=== PATIENT | female | born 1945 | race Caucasian/White ===

== ENCOUNTER → 2018-05-02 08:29 | Outpatient (CLI) | payer MEDICARE, OTHER, SELFPAY ==
--- NOTE | 2018-05-02 | DI.MG.S_ITS ---
BILATERAL DIGITAL SCREENING MAMMOGRAM 3D/2D WITH CAD: 05/02/2018 CLINICAL: Routine screening. Comparison is made to exams dated: 04/23/2017 ultrasound, 04/23/2017 mammogram, 04/09/2017 mammogram, 01/29/2016 mammogram, and 06/17/2014 mammogram - [facility]. There are scattered fibroglandular elements in both breasts. Current study was also evaluated with a Computer Aided Detection (CAD) system. No significant masses, calcifications, or other findings are seen in either breast. There has been no significant interval change. IMPRESSION: NEGATIVE There is no mammographic evidence of malignancy. A 1 year screening mammogram is recommended. This exam was interpreted at Station ID: [id number]. NOTE: For mammograms, a report in lay terms will be sent to the patient. Approximately 15% of breast malignancies will not be visualized mammographically. In the management of a palpable breast mass, a negative mammogram must not discourage biopsy of a clinically suspicious lesion. Electronically Signed By: Jane adhikari/jordan:05/04/2018 12:11:33 copy to: Tejas Granados letter sent: Normal Exam ACR BI-RADS Category 1: Negative 3341F
== END ==
PROVIDERS: Family Provider Family Medicine; PCP Family Medicine; Visit Provider Specialist
DX: Z12.31 Encounter for screening mammogram for malignant neoplasm of breast (principal)
CPT/HCPCS: 77063; 77067

== ENCOUNTER → 2019-06-01 12:05 | Outpatient (CLI) | payer MEDICARE, OTHER, SELFPAY ==
--- NOTE | 2019-06-01 | DI.MG.S_ITS ---
BILATERAL DIGITAL SCREENING MAMMOGRAM 3D/2D WITH CAD: 06/01/2019 CLINICAL: Routine screening. Comparison is made to exams dated: 05/02/2018 mammogram, 04/09/2017 mammogram, 01/29/2016 mammogram, 10/22/2017 mammogram, 04/23/2017 mammogram, and 06/17/2014 mammogram - [facility]. There are scattered fibroglandular elements in both breasts. Current study was also evaluated with a Computer Aided Detection (CAD) system. No significant masses, calcifications, or other findings are seen in either breast. There has been no significant interval change. IMPRESSION: NEGATIVE There is no mammographic evidence of malignancy. A 1 year screening mammogram is recommended. This exam was interpreted at Station ID: [id number]. NOTE: For mammograms, a report in lay terms will be sent to the patient. Approximately 15% of breast malignancies will not be visualized mammographically. In the management of a palpable breast mass, a negative mammogram must not discourage biopsy of a clinically suspicious lesion. Electronically Signed By: Kam marrufo/jordan:06/01/2019 13:31:16 copy to: BAILEY MARIE letter sent: Normal Exam ACR BI-RADS Category 1: Negative 3341F
== END ==
PROVIDERS: Family Provider Specialist; PCP Family Medicine; Visit Provider Family Medicine
DX: Z12.31 Encounter for screening mammogram for malignant neoplasm of breast (principal)
CPT/HCPCS: 77063; 77067

== ENCOUNTER → 2020-06-07 15:41 | Outpatient (CLI) | payer MEDICARE, OTHER, SELFPAY ==
--- NOTE | 2020-06-07 | DI.MG.S_ITS ---
BILATERAL DIGITAL SCREENING MAMMOGRAM 3D/2D WITH CAD: 06/07/2020 CLINICAL: Routine screening. Comparison is made to exams dated: 06/01/2019 mammogram, 05/02/2018 mammogram, and 10/22/2017 mammogram - [facility]. There are scattered fibroglandular elements in both breasts. Current study was also evaluated with a Computer Aided Detection (CAD) system. No significant masses, calcifications, or other findings are seen in either breast. There has been no significant interval change. IMPRESSION: NEGATIVE There is no mammographic evidence of malignancy. A 1 year screening mammogram is recommended. This exam was interpreted at Station ID: [id number]. NOTE: For mammograms, a report in lay terms will be sent to the patient. Approximately 15% of breast malignancies will not be visualized mammographically. In the management of a palpable breast mass, a negative mammogram must not discourage biopsy of a clinically suspicious lesion. Electronically Signed By: Jane adhikari/jordan:06/13/2020 15:17:41 letter sent: Normal Exam ACR BI-RADS Category 1: Negative 3341F
== END ==
PROVIDERS: Family Provider Specialist; PCP Family Medicine; Referring Provider Family Medicine; Visit Provider Family Medicine
DX: Z12.31 Encounter for screening mammogram for malignant neoplasm of breast (principal)
CPT/HCPCS: 77063; 77067

== ENCOUNTER → 2021-05-09 17:49 | Outpatient (CLI) | payer MEDICARE, OTHER, SELFPAY ==
[2021-05-09 18:33] LABS: COVID19 -Nasal RAPID POSITIVE (Negative)
== END ==
PROVIDERS: Family Provider Specialist; PCP Family Medicine; Visit Provider Nurse Practitioner Family
DX: U07.1 COVID-19 (principal); Z20.822 Contact with and (suspected) exposure to COVID-19
CPT/HCPCS: 87635

== ENCOUNTER 2021-05-13 19:15 | Emergency (ER) | payer MEDICARE, OTHER, SELFPAY ==
[2021-05-13] VITALS (10 sets, daily range): BP systolic 132–144; BP diastolic 58–74; PULSE 86–90; RESP 18; TEMP 37.2; O2SAT 92–95
--- NOTE | 2021-05-13 20:42 | ED_ITS ---
HPI - Recheck/Abnormal Lab/Rx General Chief Complaint: Recheck/Abnormal Lab/Rx Stated Complaint: covid +, dehydrated Time Seen by Provider: 05/13/21 20:11 Source: patient Mode of arrival: Ambulatory History of Present Illness HPI narrative: 75-year-old woman with a history of rheumatoid arthritis for which she is on intermittent steroids and hydroxychloroquine, hypertension and diagnosis of COVID-19 on the . She started having upper respiratory symptoms 3 days prior to that, putting her currently at about day 7 or 8 of symptoms. She is complaining of dehydration, with loss of taste and smell it has been difficult for her to drink she started diarrhea yesterday. Slightly dizzy when she stands up. Mild cough, fevers, myalgias. She is not complaining of severe dyspnea at this time and oxygen saturations are 94% and with deep breathing and walking go up to 97-98%. She does describe mild headache, she does complain of some mild nausea but no overt vomiting. Increasing global weakness/fatigue has been an issue. Related Data Home Medications Medication Instructions Recorded Confirmed OMEPRAZOLE 20 mg PO QDAY PRN #0 08/03/12 05/09/21 cholecalciferol (vitamin D3) 50 6,000 iu PO QDAY #0 08/03/12 05/09/21 mcg (2,000 unit) capsule (Vitamin D3) atenolol 25 mg tablet 25 mg PO QDAY #0 08/17/12 05/09/21 hydroxychloroquine 200 mg tablet 400 mg PO BID #0 tab 07/13/18 05/09/21 (Plaquenil) Previous Rx's Medication Instructions Recorded albuterol sulfate 90 mcg/actuation 0 INH Q4H #8 gm 08/26/16 aerosol inhaler (Ventolin HFA) albuterol sulfate 90 mcg/actuation 0 puff INH Q4HP PRN #1 ea 07/20/17 aerosol inhaler (Ventolin HFA) prednisone 50 mg tablet 50 mg PO AMCC #5 tab 07/20/17 benzonatate 100 mg capsule 100 mg PO BID PRN #14 cap 05/13/21 (Tessalon Perles) ondansetron 4 mg disintegrating 4 mg PO Q8H PRN #12 tab 05/13/21 tablet Allergies Allergy/AdvReac Type Severity Reaction Status Date / Time azithromycin [AZITHROMYCIN] Allergy Unknown Verified 05/09/21 18:17 SULFA Allergy Severe TONGUE Uncoded 05/09/21 18:17 SWELLING Review of Systems Review of Systems Narrative: Remainder of complete review of systems is otherwise unremarkable except for that included in the HPI. Patient History Medical History Abnormal Pap smear of cervix (~2010) Acne (~1960) Chicken pox (~1954) Colon polyps (~2008) Fibroids (~1982) Human papilloma virus (~2010) Measles (~1957) MRSA (methicillin resistant Staphylococcus aureus) (~2011) MVP (mitral valve prolapse) (~1975) Osteoporosis (~2007) Rheumatoid arthritis (~2010) Seasonal allergies (~1954) Surgical History Anesthesia History of breast surgery (~1977) History of hip replacement History of knee replacement (06/05/16) Status post bunionectomy (~2006) Status post delivery (~1982) Family History Father Heart disease Mother Diabetes mellitus Social History Smoking Status: Former smoker Smoking Status: Former smoker Exam Narrative Exam Narrative: General: Healthy appearing, in no acute distress. Able to give a complete and coherent history. Well-nourished well-developed HEENT: Moist mucous membranes, normal sclera with reactive pupils, Neck: No JVD, supple Respiratory: Lungs with minor rhonchi left upper posterior lobe with scattered wheeze in that area. This does not clear with coughing. Full and symmetrical air movement Cardiac: Regular rate and rhythm no murmurs no bruits Abdomen: Soft, nontender, good bowel tones, no flank pain Skin: Warm and dry, no rashes Neurologic: Grossly neurologically intact with no obvious asymmetries or abnormalities Extremities: No trauma, well perfused Psych: Cooperative, appropriate insight and affect Initial Vital Signs Initial Vital Signs: Vital Signs Temperature 99.0 F 05/13/21 19:21 Pulse Rate 90 05/13/21 19:21 Respiratory Rate 18 05/13/21 19:21 Blood Pressure 144/65 H 05/13/21 19:21 Pulse Oximetry 95 05/13/21 19:21 Course Orders Ordered: ED Orders 05/13/21 22:09 XR chest 1V Stat 05/13/21 22:30 Complete Blood Count AUTO DIFF Stat Comprehensive Metabolic Panel Stat Discontinued Medications Benzonatate (Benzonatate 100 Mg Capsule) 100 mg PO NOW ONE Stop: 05/13/21 20:54 Last Admin: 05/13/21 21:09 Dose: 100 mg Documented by: WESTON Sodium Chloride (Normal Saline 0.9%) 1,000 mls @ 1,000 mls/hr IV BOLUS ONE Stop: 05/13/21 21:52 Last Admin: 05/13/21 21:08 Dose: 1,000 mls/hr Documented by: WESTON Ondansetron HCl (Ondansetron 4 Mg/2 Ml Inj) 4 mg IV NOW ONE Stop: 05/13/21 20:54 Last Admin: 05/13/21 21:09 Dose: 4 mg Documented by: WESTON Vital Signs Vital signs: Vital Signs - 8 hr 05/13/21 19:21 05/13/21 20:02 05/13/21 20:30 Temperature 99.0 F Pulse Rate 90 87 87 Respiratory Rate 18 Blood Pressure 144/65 H Pulse Oximetry 95 94 94 05/13/21 21:00 05/13/21 21:17 05/13/21 21:30 Temperature Pulse Rate 89 88 86 Respiratory Rate Blood Pressure 132/58 L Pulse Oximetry 93 93 93 05/13/21 22:00 05/13/21 22:30 Temperature Pulse Rate 86 87 Respiratory Rate Blood Pressure Pulse Oximetry 94 95 MDM - Recheck/Abnormal Lab/Rx Medical Records Medical records narrative: 75-year-old woman with COVID pneumonia oxygenation levels are in the 94-98% range. She was dehydrated with the diarrhea has been rehydrated feeling slightly better. I suspect with her respiratory status that she may well end up back in the emergency room within the next 24-48 hours with oxygen requirements. Have reviewed with her reasons to return and at this point she is safe for home discharge. I have given her Zofran to help with nausea as well as Tessalon to help with the cough, explain these are purely symptomatic measures. Lab Data Result diagrams: 05/13/21 22:30 05/13/21 22:30 Labs: Lab Results 05/13/21 05/13/21 Range/Units 22:30 22:30 WBC 4.2 L (4.5-11.0) X10^3/uL RBC 5.21 H (4.0-5.2) X10^6/uL Hgb 15.1 (12.0-16.0) g/dL Hct 45.2 (36-46) % MCV 86.7 (80-100) fL MCH 28.9 (26-34) PG MCHC 33.3 (30-36) % RDW 13.4 (11.6-14.8) % Plt Count 96 L (150-400) X10^3/uL Neut % (Auto) 71.8 (50-75) % Lymph % (Auto) 13.9 L (25-40) % [place] % (Auto) 13.8 (3-14) % Eos % (Auto) 0.0 L (2-4) % Baso % (Auto) 0.5 (0-2) % Neut # (Auto) 3000 (5556-0869) /uL Lymph # (Auto) 600 L (0965-3540) /uL [place] # (Auto) 600 (0-900) /uL Eos # (Auto) 0 (0-450) /uL Baso # (Auto) 0 (0-100) /uL Sodium 130 L (137-145) mmol/L Potassium 4.8 (3.4-5.1) mmol/L Chloride 102 (98-107) mmol/L Carbon Dioxide 21 L (22-32) mmol/L BUN 18 H (7-17) mg/dL Creatinine 0.68 (0.52-1.04) mg/dL Estimated GFR > 60.0 (>60) mL/min BUN/Creatinine Ratio 26.5 H (6-22) Glucose 91 (80-110) mg/dL Calcium 8.3 L (8.4-10.2) mg/dL Total Bilirubin 0.5 (0.2-1.3) mg/dL AST 39 H (14-36) IU/L ALT 23 (<35) IU/L Alkaline Phosphatase 55 (38-126) U/L Total Protein 6.2 L (6.3-8.2) g/dL Albumin 3.4 L (3.5-5.0) g/dL Globulin 2.8 (1.7-4.1) g/dL Albumin/Globulin Ratio 1.2 (1.0-2.8) Imaging Data Chest x-ray: Radiologist's Impression: FINDINGS:? ? Surgical changes and devices:? None.? ? Lungs and pleura:? Lungs are clear.? Subtle patchy airspace opacities are consistent with history of COVID-19.? No pleural effusions or pneumothorax.? ? Mediastinum:? Mediastinal contours appear normal.? Heart size is normal.? ? Bones and chest wall:? No suspicious bony lesions.? Overlying soft tissues appear unremarkable.? ? IMPRESSION:? Patchy mild airspace opacities consistent with history of COVID-19. ? ? Dictated by: Zeus Snyder M.D. on 05/13/2021 at 22:35 ? ? [facility] Narrative Medical decision making narrative: 75-year-old woman on day 7 of her COVID-19 infection, on vaccinated. Chest x-ray is consistent with COVID-19 without superimposed bacterial pneumonia. Lab work is consistent with similar findings. At this time she is not needing any oxygen simply feeling a bit dehydrated from the diarrhea. Will discharge her home with nausea medication as well as Tessalon Perles to help control the cough. Will strongly encourage her to ret urn should she have increasing dyspnea. Discharge Plan Departure Patient Disposition: Home Clinical Impression: COVID-19 Instructions: DI for COVID-19 (Suspected or Confirmed ) Activity Restrictions/Additional Instructions: Thank you for coming in today Your oxygen levels are reassuring at this time in you do not need hospital admission You do have COVID pneumonia. I have given you a prescription for Zofran to help with nausea that you might have and some Tessalon Perles to try to help with the cough. If you find that you are becoming increasingly short of breath, you need to return to the hospital. [facility] [place] I hope you heal quickly Prescriptions: New ondansetron 4 mg tablet,disintegrating 4 mg PO Q8H PRN (Reason: nausea and vomiting) Qty: 12 RF: 0 benzonatate [Tessalon Perles] 100 mg capsule 100 mg PO BID PRN (Reason: cough) Qty: 14 RF: 0 No Action cholecalciferol (vitamin D3) [Vitamin D3] 2,000 UNIT capsule 6,000 iu PO QDAY Qty: 0 RF: 0 OMEPRAZOLE 20 mg PO QDAY PRN Qty: 0 RF: 0 atenolol 25 MG tablet 25 mg PO QDAY Qty: 0 RF: 0 albuterol sulfate [Ventolin HFA] 90 MCG/PUFF HFA aerosol inhaler 0 INH Q4H Qty: 8 RF: 0 prednisone 50 MG tablet 50 mg PO AMCC Qty: 5 RF: 0 albuterol sulfate [Ventolin HFA] 90 MCG/PUFF HFA aerosol inhaler 0 puff INH Q4HP PRNQty: 1 RF: 0 hydroxychloroquine [Plaquenil] 200 mg tablet 400 mg PO BID Qty: 0 RF: 0 Referrals: Tejas Granados MD [Primary Care Provider] -
[2021-05-13] MEDS: SODIUM CHLORIDE 0.9% 1,000 ML 1000 ML IV (21:08)
[2021-05-13] MEDS: BENZONATATE 100 MG CAPSULE PO (21:09)
[2021-05-13] MEDS: ONDANSETRON 4 MG/2 ML INJ IV (21:09)
--- NOTE | 2021-05-13 22:09 | DI.RAD.S_ITS ---
PROCEDURE: XR CHEST 1V INDICATIONS: covid TECHNIQUE: One view of the chest was acquired. COMPARISON: [facility], , CHEST 2 VIEW, 07/20/2017, 1:40. FINDINGS: Surgical changes and devices: None. Lungs and pleura: Lungs are clear. Subtle patchy airspace opacities are consistent with history of COVID-19. No pleural effusions or pneumothorax. Mediastinum: Mediastinal contours appear normal. Heart size is normal. Bones and chest wall: No suspicious bony lesions. Overlying soft tissues appear unremarkable. IMPRESSION: Patchy mild airspace opacities consistent with history of COVID-19. Dictated by: Zeus Snyder M.D. on 05/13/2021 at 22:35 Approved by: Zeus Snyder M.D. on 05/13/2021 at 22:36
[2021-05-13 22:48] LABS: Add Manual Diff / Slide Review NO; Basophils Absolute Auto 0 /uL (0-100); Basophils Percent Auto 0.5 % (0-2); Eosinophils Absolute Auto 0 /uL (0-450); Hematocrit 45.2 % (36-46); Hemoglobin 15.1 g/dL (12.0-16.0); Lymphocytes Absolute Auto 600 /uL (1100-4500); Lymphocytes Percent Auto 13.9 % (25-40); Mean Corpuscular HGB Conc 33.3 % (30-36); Mean Corpuscular Hemoglobin 28.9 PG (26-34); Mean Corpuscular Volume 86.7 fL (80-100); Monocytes Absolute Auto 600 /uL (0-900); Monocytes Percent Auto 13.8 % (3-14); Neutrophils Absolute Auto 3000 /uL (1500-7000); Neutrophils Percent Auto 71.8 % (50-75); Platelet Count 96 X10^3/uL (150-400); Red Blood Cell Count 5.21 X10^6/uL (4.0-5.2); Red Cell Distribution Width 13.4 % (11.6-14.8); White Blood Cell Count 4.2 X10^3/uL (4.5-11.0)
[2021-05-13 22:59] LABS: Alanine Aminotransferase 23 IU/L (<35); Albumin 3.4 g/dL (3.5-5.0); Albumin Globulin Ratio 1.2 (1.0-2.8); Alkaline Phosphatase 55 U/L (38-126); Aspartate Aminotransferase 39 IU/L (14-36); BUN Creatinine Ratio 26.5 (6-22); Bilirubin Total 0.5 mg/dL (0.2-1.3); Blood Urea Nitrogen 18 mg/dL (7-17); Calcium 8.3 mg/dL (8.4-10.2); Carbon Dioxide 21 mmol/L (22-32); Chloride 102 mmol/L (98-107); Estimated Glomerular Filt Rate > 60.0 mL/min (>60); Globulin 2.8 g/dL (1.7-4.1); Glucose 91 mg/dL (80-110); HEMOLYSIS < 15 (0-50); Potassium 4.8 mmol/L (3.4-5.1); Sodium 130 mmol/L (137-145); Total Protein 6.2 g/dL (6.3-8.2)
== END 2021-05-13 23:37 | disposition home or self-care (01) ==
PROVIDERS: Emergency Provider Emergency Medicine; Family Provider Specialist; PCP Family Medicine
DX: U07.1 COVID-19 (principal); R51.9 Headache, unspecified; R11.0 Nausea; R06.00 Dyspnea, unspecified
CPT/HCPCS: 36415; 71045; 80053; 85025; 96361; 96374; 99284; J2405

== ENCOUNTER → 2021-08-18 12:41 | Outpatient (CLI) | payer MEDICARE, OTHER, SELFPAY ==
--- NOTE | 2021-08-18 | DI.MG.S_ITS ---
BILATERAL DIGITAL SCREENING MAMMOGRAM 3D/2D WITH CAD: 08/18/2021 CLINICAL: Routine screening. Comparison is made to exams dated: 06/07/2020 mammogram, 06/01/2019 mammogram, and 05/02/2018 mammogram - [facility]. There are scattered fibroglandular elements in both breasts. Current study was also evaluated with a Computer Aided Detection (CAD) system. No significant masses, calcifications, or other findings are seen in either breast. There has been no significant interval change. IMPRESSION: NEGATIVE There is no mammographic evidence of malignancy. A 1 year screening mammogram is recommended. This exam was interpreted at Station ID: [id number]. NOTE: For mammograms, a report in lay terms will be sent to the patient. Approximately 15% of breast malignancies will not be visualized mammographically. In the management of a palpable breast mass, a negative mammogram must not discourage biopsy of a clinically suspicious lesion. Electronically Signed By: Merle espino/jordan:08/20/2021 10:09:07 letter sent: Normal Exam ACR BI-RADS Category 1: Negative 3341F
== END ==
PROVIDERS: Family Provider Specialist; PCP Family Medicine; Referring Provider Family Medicine; Visit Provider Family Medicine
DX: Z12.31 Encounter for screening mammogram for malignant neoplasm of breast (principal)
CPT/HCPCS: 77063; 77067

== ENCOUNTER → 2022-03-20 18:19 | Outpatient (CLI) | payer MEDICARE, OTHER, SELFPAY ==
--- NOTE | 2022-03-20 18:23 | DI.RAD.S_ITS ---
PROCEDURE: XR HIP W PEL IF DONE RT 2V INDICATIONS: right hip pain TECHNIQUE: AP pelvis with lateral view(s) of the right hip(s). COMPARISON: [facility], , HIP 2V RIGHT, 05/25/2012, 13:28. FINDINGS: Bones: No fractures or dislocations. Pelvic ring appears intact. Bilateral hip arthroplasties appear intact. No suspicious bony lesions. Soft tissues: The visualized bowel gas pattern is normal. No suspicious soft tissue calcifications. IMPRESSION: No radiographic abnormalities. Dictated by: Jane Duenas M.D. on 03/21/2022 at 11:48 Approved by: Jane Duenas M.D. on 03/21/2022 at 11:49
== END ==
PROVIDERS: Family Provider Specialist; PCP Family Medicine; Referring Provider Chiropractor; Visit Provider Chiropractor
DX: M25.551 Pain in right hip (principal)
CPT/HCPCS: 73502

== ENCOUNTER → 2022-04-13 14:28 | Outpatient (CLI) | payer MEDICARE, OTHER, SELFPAY ==
--- NOTE | 2022-04-13 14:31 | DI.CT.S_ITS ---
PROCEDURE: CT HIP RIGHT WITHOUT CON INDICATIONS: Pain in right hip;Preoperative planning TECHNIQUE: Noncontrast 3 mm axial sections acquired through the bony pelvis. Additional 3 mm axial sections acquired through the symptomatic hip joint, with coronal and sagittal reformats. COMPARISON: [facility], CR, XR HIP W PEL IF DONE RT 2V, 03/20/2022, 18:28. FINDINGS: Image quality: Diagnostic. Significant beam hardening artifacts are seen from hip prosthesis. Bones: Patient is status post bilateral total hip arthroplasty. Bilateral hip alignment is anatomic. No gross acute fracture or dislocation. No periprosthetic fracture is seen. No gross hardware loosening or failure is noted. No suspicious intraosseous lesion is seen. 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 Soft tissues: There is no pelvic free fluid or free air. Sigmoid diverticulosis is seen without evidence of acute diverticulitis. No abnormal bowel wall thickening or bladder wall thickening. No abnormal soft tissue calcifications are seen. No gross intramuscular mass or fluid collection. IMPRESSION: 1. Prior bilateral total hip arthroplasty with anatomic hip alignment. No acute fracture or dislocation. No evidence of hardware loosening or failure. 2. No gross pelvic or hip soft tissue abnormality is seen. Dictated by: Richard Lora M.D. on 04/15/2022 at 11:54 Approved by: Richard Lora M.D. on 04/15/2022 at 12:07
== END ==
PROVIDERS: Family Provider Specialist; PCP Family Medicine; Referring Provider Student in an Organized Health Care Education/Training Program; Visit Provider Student in an Organized Health Care Education/Training Program
DX: M25.551 Pain in right hip (principal); Z96.643 Presence of artificial hip joint, bilateral
CPT/HCPCS: 73700

== ENCOUNTER → 2022-06-02 13:59 | Outpatient (CLI) | payer MEDICARE, OTHER, SELFPAY ==
--- NOTE | 2022-06-02 14:02 | DI.MRI.S_ITS ---
PROCEDURE: MR LUMBAR SPINE WO CON INDICATIONS: Radiculopathy, lumbar region TECHNIQUE: Noncontrast sagittal T1 spin echo and T2 fast echo, sagittal STIR, and T2 fast spin echo through the lumbar spine. In cases with scoliosis, additional coronal T2 fast spin echo may be performed. COMPARISON: None. FINDINGS: Image quality: Excellent. Alignment and Curvature: There is normal bony alignment. Bone Marrow: Marrow is of normal overall signal. No acute vertebral body compression fractures. Spinal Cord: Conus medullaris terminates at the L1 level. Visualized cord demonstrates normal signal and size. Paraspinous Soft Tissues: No paravertebral masses. T12-L1: Moderate disc desiccation and height loss. Broad-based disc bulge. Moderate facet ligamentum flavum hypertrophy. No canal stenosis. Mild bilateral neural foraminal stenosis. L1-L2: Moderate disc desiccation and height loss. Broad-based disc bulge. Moderate facet ligamentum flavum hypertrophy. No canal stenosis. Mild left foraminal narrowing. No right neural foraminal stenosis. L2-L3: Mild disc desiccation and height loss. Broad-based disc bulge. Severe facet ligamentum flavum hypertrophy. Mild canal stenosis. Mild bilateral foraminal stenosis. L3-L4: Mild disc desiccation and height loss. Broad-based disc bulge. Severe facet ligamentum flavum hypertrophy. Mild canal stenosis. Moderate bilateral neural foraminal stenosis. L4-L5: Moderate disc desiccation and height loss. Broad-based disc bulge. Severe facet ligamentum flavum hypertrophy. There is there is a bilobed cystic posterior right extra medullary lesion that likely originates from the facet joint which measures approximately 1.5 x 1.2 x1.6 cm in the axial plane and spans both sides of the facet joint (series 7/image 11). There is severe resultant canal stenosis. There is moderate left neural foraminal narrowing and severe right neural foraminal stenosis with flattening of the exiting nerve root. L5-S1: Moderate disc desiccation and height loss. Broad-based disc bulge. Severe facet ligamentum flavum hypertrophy. No canal stenosis. Mild right and moderate left foraminal stenosis. IMPRESSION: 1. Bilobed cystic lesion at L4-5 which likely represents a synovial cyst. However, contrast enhanced MRI of the lumbar spine is recommended to exclude other extramedullary lesions. There is resultant severe canal stenosis and severe right foraminal stenosis with flattening of the exiting nerve root at this level. 2. Multilevel mild to moderate disc desiccation and height loss. 3. Broad-based disc bulges and facet ligamentum flavum hypertrophy with resultant mild canal stenosis at L2-3 and L3-4. 4. Moderate bilateral foraminal stenosis at L3-4 and moderate left foraminal stenosis at L5-S1. Dictated by: Jane Duenas M.D. on 06/03/2022 at 8:57 Approved by: Jane Duenas M.D. on 06/03/2022 at 9:04
== END ==
PROVIDERS: Family Provider Specialist; PCP Family Medicine; Referring Provider Physical Medicine & Rehabilitation Pain Medicine; Visit Provider Physical Medicine & Rehabilitation Pain Medicine
DX: M51.16 Intervertebral disc disorders with radiculopathy, lumbar region (principal); M48.8X6 Other specified spondylopathies, lumbar region; M48.061 Spinal stenosis, lumbar region without neurogenic claudication; M48.07 Spinal stenosis, lumbosacral region
CPT/HCPCS: 72148

== ENCOUNTER → 2022-06-09 14:08 | Outpatient (CLI) | payer MEDICARE, OTHER, SELFPAY ==
--- NOTE | 2022-06-09 14:10 | DI.MRI.S_ITS ---
PROCEDURE: MR LUMBAR SPINE W CON INDICATIONS: SPINAL STENOSIS TECHNIQUE: Noncontrast sagittal T1 spin echo and T2 fast echo, sagittal STIR, and T2 fast spin echo through the lumbar spine. In cases with scoliosis, additional coronal T2 fast spin echo may be performed. COMPARISON: [facility], MR, MR LUMBAR SPINE WO CON, 06/02/2022, 14:15. FINDINGS: Image quality: Excellent. Alignment and Curvature: There is normal bony alignment. This study was performed to evaluate a cystic lesion posteriorly at the level of L4-L5, which was felt to most likely represent a large synovial cyst on the interpretation of this study of 06/02/2022. At that time, an MRI of the lumbar spine with contrast was recommended to exclude other extra medullary lesions. This lesion does not enhance, and is a synovial cyst off of the facet joint, likely off of the right facet joint. It does result in severe canal stenosis and right foraminal stenosis. IMPRESSION: The large cystic lesion at L4-L5, resulting in severe canal stenosis and right foraminal stenosis represents a facet joint cyst, likely off of the right L4-L5 facet joint. Dictated by: Shay Kiran M.D. on 06/10/2022 at 9:09 Approved by: Shay Kiran M.D. on 06/10/2022 at 9:14
== END ==
PROVIDERS: Family Provider Specialist; PCP Family Medicine; Referring Provider Physical Medicine & Rehabilitation Pain Medicine; Visit Provider Physical Medicine & Rehabilitation Pain Medicine
DX: M48.062 Spinal stenosis, lumbar region with neurogenic claudication (principal); M53.86 Other specified dorsopathies, lumbar region
CPT/HCPCS: 72149

== ENCOUNTER 2022-06-26 08:07 | Emergency (ER) | payer MEDICARE, OTHER, SELFPAY ==
[2022-06-26 08:14] VITALS: BP 117/65; PULSE 77; RESP 18; TEMP 36.8; O2SAT 98; BMI 34.5
--- NOTE | 2022-06-26 08:21 | DI.RAD.S_ITS ---
PROCEDURE: XR CHEST 2V INDICATIONS: cough/congestion TECHNIQUE: 2 views of the chest were acquired. COMPARISON: [facility], CR, XR CHEST 1V, 05/13/2021, 22:21. FINDINGS: Surgical changes and devices: None. Lungs and pleura: Mild diffuse interstitial prominence with streaky bibasilar opacities. No focal consolidations. Mild perihilar airway thickening. No pneumothorax or substantial pleural effusion seen. Mediastinum: Mediastinal contours are normal. Heart size is normal. Bones and chest wall: No suspicious bony abnormalities. Soft tissues appear unremarkable. IMPRESSION: Diffuse interstitial prominence with mild perihilar airway thickening. Findings may represent an infectious or inflammatory process with viral etiology most likely. No focal consolidations identified. Streaky bibasilar opacities favored to represent atelectasis. Recommend follow up chest radiograph 4-6 weeks after treatment to document resolution of findings and/or return to baseline examination. Dictated by: Marin Pace M.D. on 06/26/2022 at 8:35 Approved by: Marin Pace M.D. on 06/26/2022 at 8:37
--- NOTE | 2022-06-26 08:52 | ED.URI ---
HPI - URI/Sore Throat General Chief Complaint: Upper Respiratory Symptoms Stated Complaint: flu symptoms t-5 coughing/worry its moving to lung Time Seen by Provider: 06/26/22 08:19 Source: patient Mode of arrival: Ambulatory History of Present Illness HPI Narrative: 76-year-old female former smoker with history of rheumatoid arthritis presents with a chief complaint of 4-5 days with various upper respiratory symptoms including nasal congestion some mild headache, prior fever and body aches but now increasingly productive cough. She denies nausea, vomiting or diarrhea. She denies dysuria, frequency or urgency. She states she is been around other sick people in his rather convinced she has the flu Related Data Home Medications Medication Instructions Recorded Confirmed OMEPRAZOLE 20 mg PO QDAY PRN ##0 08/03/12 05/09/21 cholecalciferol (vitamin D3) 50 6,000 iu PO QDAY ##0 08/03/12 05/09/21 mcg (2,000 unit) capsule (Vitamin D3) atenolol 25 mg tablet 25 mg PO QDAY ##0 08/17/12 05/09/21 hydroxychloroquine 200 mg tablet 400 mg PO BID #0 tabs 07/13/18 05/09/21 (Plaquenil) Previous Rx's Medication Instructions Recorded albuterol sulfate 90 mcg/actuation 0 INH Q4H ##8 08/26/16 aerosol inhaler (Ventolin HFA) albuterol sulfate 90 mcg/actuation 0 puff INH Q4HP PRN #1 ea 07/20/17 aerosol inhaler (Ventolin HFA) prednisone 50 mg tablet 50 mg PO AMCC #5 tabs 07/20/17 benzonatate 100 mg capsule 100 mg PO BID PRN cough #14 caps 05/13/21 (Tessalon Perles) ondansetron 4 mg disintegrating 4 mg PO Q8H PRN nausea and 05/13/21 tablet vomiting #12 tabs doxycycline hyclate 100 mg tablet 100 mg PO BID #20 tabs 06/26/22 ondansetron 4 mg disintegrating 4 mg PO TID-QID PRN nausea and 06/26/22 tablet vomiting #10 tabs Allergies Allergy/AdvReac Type Severity Reaction Status Date / Time azithromycin [AZITHROMYCIN] Allergy Unknown Verified 06/26/22 08:17 SULFA Allergy Severe TONGUE Uncoded 05/09/21 18:17 SWELLING Review of Systems Review of Systems Narrative: GENERAL: See HPI HEENT: See HPI RESPIRATORY: D see HPI CARDIOVASCULAR: Denies chest pain, palpitations, orthopnea, edema, GASTROINTESTINAL: Denies nausea, vomiting, abdominal pain, diarrhea, constipation, melena. : Denies dysuria, frequency, incontinence, hematuria, urinary retention. MUSCULOSKELETAL: denies weakness, joint pain, or bony pain SKIN: Denies rash, skin lesions, or other NEUROLOGIC: Denies weakness, headache, numbness, change in speech, confusion, seizures, incoordination. PSYCHIATRIC: No concerning psychosocial issues. 12 point review of systems is negative except for those stated above Patient History Medical History Abnormal Pap smear of cervix (~2010) Acne (~1960) Chicken pox (~1954) Colon polyps (~2008) Fibroids (~1982) Human papilloma virus (~2010) Measles (~1957) MRSA (methicillin resistant Staphylococcus aureus) (~2011) MVP (mitral valve prolapse) (~1975) Osteoporosis (~2007) Rheumatoid arthritis (~2010) Seasonal allergies (~1954) Surgical History Anesthesia History of breast surgery (~1977) History of hip replacement History of knee replacement (06/05/16) Status post bunionectomy (~2006) Status post delivery (~1982) Family History Father Heart disease Mother Diabetes mellitus Social History Smoking Status: Former smoker Smoking Status: Former smoker alcohol intake frequency: holidays/special occasions only Substance Use Type: does not use Exam Narrative Exam Narrative: GENERAL: [76] year old patient appears stated age. Well-developed patient, in mild distress. HEAD: Atraumatic. Normocephalic. EYES: Pupils equal round and reactive. Extraocular motions intact. No scleral icterus. No injection or drainage. ENT: Nose without bleeding, purulent drainage. Throat without erythema, tonsillar hypertrophy or exudate. Airway patent. NECK: Trachea midline. Non tender CARDIOVASCULAR: Regular rate and rhythm without murmurs, gallops, or rubs. RESPIRATORY: Clear to auscultation. Breath sounds equal bilaterally. No wheezes, rales, or rhonchi. GASTROINTESTINAL: Abdomen soft, non-tender, nondistended. EXTREMITIES: No edema or joint tenderness. BACK: Nontender without deformity or crepitance. No flank tenderness. NEURO: AOx3. SKIN: No rash or erythema of visible areas Initial Vital Signs Initial Vital Signs: Vital Signs Temperature 98.2 F 06/26/22 08:14 Pulse Rate 77 06/26/22 08:14 Respiratory Rate 18 06/26/22 08:14 Blood Pressure 117/65 06/26/22 08:14 Pulse Oximetry 98 06/26/22 08:14 Oxygen Delivery Method 06/26/22 08:14 Course Orders Ordered: ED Orders 06/26/22 08:21 Chest [XR chest 2V] Stat Vital Signs Vital signs: Vital Signs - 8 hr 06/26/22 08:14 Temperature 98.2 F Pulse Rate 77 Respiratory Rate 18 Blood Pressure 117/65 Pulse Oximetry 98 Oxygen Delivery Method Room Air MDM - URI/Sore Throat MDM Narrative Medical decision making narrative: 76-year-old female former smoker with upper respiratory symptoms for few days. Did not want to respiratory panel knowing that it would not likely change the plan. Chest x-ray does have some subtle findings and given her history of former smoking and now increasingly productive cough we will cover her for atypical pneumonia. She is tolerating orals without difficulty. She demonstrates no signs of respiratory distress such as hypoxemia or use of accessory muscles. Return precautions discussed and questions answered to her apparent satisfaction Discharge Plan Departure Patient Disposition: Home Clinical Impression: Upper respiratory infection, Atypical pneumonia Instructions: DI for Atypical Pneumonia Activity Restrictions/Additional Instructions: *You have been diagnosed with [atypical pneumonia] *What to do: *Please continue to take your regular medications as directed. [ x] New medication prescriptions sent to your pharmacy: [ [facility]] [ ] New medication written as a paper prescription [ ] No new medications given *Please follow up with your primary care provider in 2-3 days, call for an appointment. Let them know you were seen in the Emergency Department and that we ask that you be seen in follow up. We will electronically transmit a record of today's note if your PCP is in our system *Return to Emergency Department if you should have any new, worsening or concerning symptoms, such as [fever greater than 101 F, shaking chills, worsening pain, persistent vomiting or other bothersome symptoms] Prescriptions: New ondansetron 4 mg tablet,disintegrating 4 mg PO TID-QID PRN (Reason: nausea and vomiting) Qty: 10 0RF doxycycline hyclate 100 mg tablet 100 mg PO BID Qty: 20 0RF No Action cholecalciferol (vitamin D3) [Vitamin D3] 2,000 UNIT capsule 6,000 iu PO QDAY Qty: 0 OMEPRAZOLE 20 mg PO QDAY PRN Qty: 0 atenolol 25 MG tablet 25 mg PO QDAY Qty: 0 albuterol sulfate [Ventolin HFA] 90 MCG/PUFF HFA aerosol inhaler 0 INH Q4H Qty: 8 0RF prednisone 50 MG tablet 50 mg PO AMCC Qty: 5 0RF albuterol sulfate [Ventolin HFA] 90 MCG/PUFF HFA aerosol inhaler 0 puff INH Q4HP PRNQty: 1 0RF hydroxychloroquine [Plaquenil] 200 mg tablet 400 mg PO BID Qty: 0 Label Comments: PT ONLY TAKES 400MG ONCE A DAY BUT COMPUTER WONT LET ME PUT QD IN ONLY BID ondansetron 4 mg tablet,disintegrating 4 mg PO Q8H PRN (Reason: nausea and vomiting) Qty: 12 0RF benzonatate [Tessalon Perles] 100 mg capsule 100 mg PO BID PRN (Reason: cough) Qty: 14 0RF Referrals: Tejas Granados MD [Primary Care Provider] - Visit Report Forms: Patient Portal/API
== END 2022-06-26 09:14 | disposition home or self-care (01) ==
PROVIDERS: Emergency Provider Emergency Medicine; Family Provider Specialist; PCP Family Medicine
DX: J18.9 Pneumonia, unspecified organism (principal); J06.9 Acute upper respiratory infection, unspecified
CPT/HCPCS: 71046; 99281; 99283

== ENCOUNTER 2022-06-30 15:13 | Emergency (ER) | payer MEDICARE, OTHER, SELFPAY ==
[2022-06-30 15:34] VITALS: BP 142/65; PULSE 76; RESP 18; TEMP 36.4; O2SAT 94; BMI 34.5
--- NOTE | 2022-06-30 15:39 | ED_ITS ---
HPI - SOB/Dyspnea General Chief Complaint: Recheck/Abnormal Lab/Rx Stated Complaint: Meds making her sick, Reevaluation Time Seen by Provider: 06/30/22 15:23 Source: patient Mode of arrival: Family Vehicle Limitations: no limitations History of Present Illness HPI Narrative: Patient is a 76-year-old female who presents with reaction to medication. She is a history of rheumatoid arthritis she was seen and evaluated here on 06/26/2022 for upper respiratory like symptoms. Now for about 8 days she started having body aches fever and cough. Though subsided however she had persistent cough which is what brought her for evaluation. She is found to have atypical pneumonia on her chest x-ray she was discharged home on doxycycline and Zofran. She says that she feels constantly nauseous she is not vomiting she does not feel like she tolerating the doxycycline. She continues to have cough but body aches have been resolved. She is eating and drinking normally. She denies any chest pain or palpitations. No dizziness or lightheadedness. She overall just does not feel like doxycycline is the right choice and she has not taken a full course yet. Related Data Home Medications Medication Instructions Recorded Confirmed OMEPRAZOLE 20 mg PO QDAY PRN ##0 08/03/12 05/09/21 cholecalciferol (vitamin D3) 50 6,000 iu PO QDAY ##0 08/03/12 05/09/21 mcg (2,000 unit) capsule (Vitamin D3) atenolol 25 mg tablet 25 mg PO QDAY ##0 08/17/12 05/09/21 hydroxychloroquine 200 mg tablet 400 mg PO BID #0 tabs 07/13/18 05/09/21 (Plaquenil) Previous Rx's Medication Instructions Recorded albuterol sulfate 90 mcg/actuation 0 INH Q4H ##8 08/26/16 aerosol inhaler (Ventolin HFA) albuterol sulfate 90 mcg/actuation 0 puff INH Q4HP PRN #1 ea 07/20/17 aerosol inhaler (Ventolin HFA) prednisone 50 mg tablet 50 mg PO AMCC #5 tabs 07/20/17 benzonatate 100 mg capsule 100 mg PO BID PRN cough #14 caps 05/13/21 (Tesrei Rose) ondansetron 4 mg disintegrating 4 mg PO Q8H PRN nausea and 05/13/21 tablet vomiting #12 tabs doxycycline hyclate 100 mg tablet 100 mg PO BID #20 tabs 06/26/22 ondansetron 4 mg disintegrating 4 mg PO TID-QID PRN nausea and 06/26/22 tablet vomiting #10 tabs Allergies Allergy/AdvReac Type Severity Reaction Status Date / Time azithromycin [AZITHROMYCIN] AdvReac Mild Vomiting Verified 06/30/22 15:37 SULFA Allergy Severe TONGUE Uncoded 06/30/22 15:37 SWELLING Review of Systems Review of Systems Narrative: GENERAL: Denies chills, fatigue, malaise, fever, sweats, travel HEENT: Denies sinus pain, ear pain, sore throat, difficulty swallowing, neck pain RESPIRATORY: See HPI CARDIOVASCULAR: Denies chest pain, palpitations, orthopnea, edema GASTROINTESTINAL: See HPI : Denies dysuria, frequency, incontinence, hematuria, urinary retention, flank pain. MUSCULOSKELETAL: Denies weakness, joint pain, or bony pain SKIN: No rash, no erythema, no pruritus NEUROLOGIC: Denies weakness, dizziness, headache, numbness, change in speech, confusion PSYCHIATRIC: No concerning psychosocial issues. 12 point review of systems is negative except for those stated above and HPI Patient History Medical History Abnormal Pap smear of cervix (~2010) Acne (~1960) Chicken pox (~1954) Colon polyps (~2008) Fibroids (~1982) Human papilloma virus (~2010) Measles (~1957) MRSA (methicillin resistant Staphylococcus aureus) (~2011) MVP (mitral valve prolapse) (~1975) Osteoporosis (~2007) Rheumatoid arthritis (~2010) Seasonal allergies (~1954) Surgical History Anesthesia History of breast surgery (~1977) History of hip replacement History of knee replacement (06/05/16) Status post bunionectomy (~2006) Status post delivery (~1982) Family History Father Heart disease Mother Diabetes mellitus Social History Smoking Status: Former smoker Smoking Status: Former smoker alcohol intake frequency: holidays/special occasions only Substance Use Type: does not use Exam Initial Vital Signs Initial Vital Signs: Vital Signs Temperature 97.6 F 06/30/22 15:34 Pulse Rate 76 06/30/22 15:34 Respiratory Rate 18 06/30/22 15:34 Blood Pressure 142/65 H 06/30/22 15:34 Pulse Oximetry 94 06/30/22 15:34 Oxygen Delivery Method 06/30/22 15:34 GENERAL: Patient is 76 years old overall appears well and in [no acute] distress. HEENT: Head atraumatic,EOMI, pupils reactive, face symmetric, [moist] mucous membranes CARDIOVASCULAR: Regular rate and rhythm without murmurs, rubs or gallops. RESPIRATORY: Breath sounds equal bilaterally, no wheezes rales or rhonchi. ABDOMEN: Soft, nontender. Normoactive bowel sounds all 4 quadrants. No guarding or rebound. EXTREMITIES: Normal range of motion, no clubbing or edema. Neurovascularly intact NEUROLOGICAL: Alert and oriented x4 SKIN: Warm, dry, no laceration, no petechiae, no rashes or lesions. Course Orders Ordered: ED Orders 06/30/22 15:46 CXR [XR chest 1V] Stat 06/30/22 16:10 CBC Auto Diff [Complete Blood Count AUTO DIFF] Stat CMP [Comprehensive Metabolic Panel] Stat Procalcitonin Stat Vital Signs Vital signs: Vital Signs - 8 hr 06/30/22 15:34 06/30/22 17:36 Temperature 97.6 F Pulse Rate 76 76 Respiratory Rate 18 18 Blood Pressure 142/65 H 143/68 H Pulse Oximetry 94 96 Oxygen Delivery Method Room Air Room Air MDM - SOB/Dyspnea Lab Data Result diagrams: 06/30/22 16:10 06/30/22 16:10 Labs: Lab Results 06/30/22 06/30/22 06/30/22 Range/Units 16:10 16:10 16:10 WBC 6.9 (4.5-11.0) X10^3/uL RBC 4.90 (4.0-5.2) X10^6/uL Hgb 14.8 (12.0-16.0) g/dL Hct 44.0 (36-46) % MCV 89.9 (80-100) fL MCH 30.2 (26-34) PG MCHC 33.6 (30-36) % RDW 13.6 (11.6-14.8) % Plt Count 207 (150-400) X10^3/uL Neut % (Auto) 65.3 (50-75) % Lymph % (Auto) 21.1 L (25-40) % [place] % (Auto) 12.5 (3-14) % Eos % (Auto) 0.0 L (2-4) % Baso % (Auto) 1.1 (0-2) % Neut # (Auto) 4500 (7604-6911) /uL Lymph # (Auto) 1500 (1796-0129) /uL [place] # (Auto) 900 (0-900) /uL Eos # (Auto) 0 (0-450) /uL Baso # (Auto) 100 (0-100) /uL Sodium 136 L (137-145) mmol/L Potassium 4.1 (3.4-5.1) mmol/L Chloride 101 (98-107) mmol/L Carbon Dioxide 30 (22-32) mmol/L BUN 14 (7-17) mg/dL Creatinine 0.85 (0.52-1.04) mg/dL Estimated GFR > 60 (>60) mL/min BUN/Creatinine Ratio 16.5 (6-22) Glucose 88 (80-110) mg/dL Calcium 9.2 (8.4-10.2) mg/dL Total Bilirubin 0.8 (0.2-1.3) mg/dL AST 33 (14-36) IU/L ALT 32 (<35) IU/L Alkaline Phosphatase 79 (38-126) U/L Total Protein 6.7 (6.3-8.2) g/dL Albumin 3.5 (3.5-5.0) g/dL Globulin 3.2 (1.7-4.1) g/dL Albumin/Globulin Ratio 1.1 (1.0-2.8) Procalcitonin 0.05 (<0.5) ng/mL Imaging Data Chest x-ray: Radiologist's Impression: nt: Mikayla Pro MR#: [id number] : 1945 Acct:[id number] Age/Sex: 76 / F Date of Service: 06/30/22 Loc: ED Accession Number: [id number] ?? Procedure: XR chest 1V Ordering Provider: Judith Vivar D.O. PROCEDURE:? XR CHEST 1V ? INDICATIONS:? cough recent pneumonia ? TECHNIQUE:? One view of the chest was acquired.? ? COMPARISON:? [facility], CR, XR CHEST 2V, 06/26/2022, 8:21. ? FINDINGS:? ? Surgical changes and devices:? None.? ? Lungs and pleura:? Atelectasis versus small residual infiltrates at bilateral lung bases are seen.? No pleural effusions or pneumothorax.? ? Mediastinum:? Mediastinal contours appear normal.? Heart size is normal.? ? Bones and chest wall:? No suspicious bony lesions.? Overlying soft tissues appear unremarkable.? ? IMPRESSION:? Suggestion of bibasilar small residual infiltrate versus atelectasis.? No pleural effusion or pneumothorax. ? ? Dictated by: Richard Lora M.D. on 06/30/2022 at 16:24 ? ? Approved by: Richard Lora M.D. on 06/30/2022 at 16:26 ? [facility] Narrative Medical decision making narrative: Patient presents today with atypical pneumonia not tolerating her doxycycline. She still does not feel quite well. Basic blood work does not show any significant abnormality she has no leukocytosis she is no sign of sepsis or SIRS. Procalcitonin is negative chest x-ray shows suggestion of residual b ilateral infiltrate versus atelectasis. She really isn't having any worsening shortness of breath it is more like she feels constantly nauseated and feels like she is reacting to the antibiotics. She certainly does not have any sign of anaphylaxis no throat swelling hives or other reaction just nausea and general fatigue. She has a negative procalcitonin, I am not convinced that she needs any further antibiotic. She is not hypoxic. Differential diagnosis includes pneumonia congestive heart failure acute coronary syndrome pulmonary embolisms, pneumothorax, allergic reaction, drug reaction Discharge Plan Departure Patient Disposition: Home Clinical Impression: Upper respiratory infection Instructions: DI for Viral Upper Respiratory Infection -- Adult Activity Restrictions/Additional Instructions: *You have been diagnosed with upper respiratory infection *What to do: At this time blood work is overall reassuring chest x-ray does not show any specific pneumonia. I do not think is necessary to continue antibiotics. Continue to stay hydrated drink fluids *Continue to take medications as directed May try [id number] Mucinex DM take as directed to help with coughing *Follow up with your primary care provider in 2-3 days or call [phone] *Return to ER if you should have increasing shortness of breath not tolerating fluids [or] any new, worsening or concerning symptoms Prescriptions: No Action cholecalciferol (vitamin D3) [Vitamin D3] 2,000 UNIT capsule 6,000 iu PO QDAY Qty: 0 OMEPRAZOLE 20 mg PO QDAY PRN Qty: 0 atenolol 25 MG tablet 25 mg PO QDAY Qty: 0 albuterol sulfate [Ventolin HFA] 90 MCG/PUFF HFA aerosol inhaler 0 INH Q4H Qty: 8 0RF prednisone 50 MG tablet 50 mg PO AMCC Qty: 5 0RF albuterol sulfate [Ventolin HFA] 90 MCG/PUFF HFA aerosol inhaler 0 puff INH Q4HP PRNQty: 1 0RF hydroxychloroquine [Plaquenil] 200 mg tablet 400 mg PO BID Qty: 0 Label Comments: PT ONLY TAKES 400MG ONCE A DAY BUT COMPUTER WONT LET ME PUT QD IN ONLY BID ondansetron 4 mg tablet,disintegrating 4 mg PO Q8H PRN (Reason: nausea and vomiting) Qty: 12 0RF benzonatate [Tessalon Perles] 100 mg capsule 100 mg PO BID PRN (Reason: cough) Qty: 14 0RF ondansetron 4 mg tablet,disintegrating 4 mg PO TID-QID PRN (Reason: nausea and vomiting) Qty: 10 0RF doxycycline hyclate 100 mg tablet 100 mg PO BID Qty: 20 0RF Referrals: Tejas Granados MD [Primary Care Provider] - Visit Report Forms: Patient Portal/API
--- NOTE | 2022-06-30 15:46 | DI.RAD.S_ITS ---
PROCEDURE: XR CHEST 1V INDICATIONS: cough recent pneumonia TECHNIQUE: One view of the chest was acquired. COMPARISON: [facility], CR, XR CHEST 2V, 06/26/2022, 8:21. FINDINGS: Surgical changes and devices: None. Lungs and pleura: Atelectasis versus small residual infiltrates at bilateral lung bases are seen. No pleural effusions or pneumothorax. Mediastinum: Mediastinal contours appear normal. Heart size is normal. Bones and chest wall: No suspicious bony lesions. Overlying soft tissues appear unremarkable. IMPRESSION: Suggestion of bibasilar small residual infiltrate versus atelectasis. No pleural effusion or pneumothorax. Dictated by: Richard Lora M.D. on 06/30/2022 at 16:24 Approved by: Richard Lora M.D. on 06/30/2022 at 16:26
[2022-06-30 16:25] LABS: Add Manual Diff / Slide Review NO; Basophils Absolute Auto 100 /uL (0-100); Basophils Percent Auto 1.1 % (0-2); Eosinophils Absolute Auto 0 /uL (0-450); Hemoglobin 14.8 g/dL (12.0-16.0); Lymphocytes Absolute Auto 1500 /uL (1100-4500); Lymphocytes Percent Auto 21.1 % (25-40); Mean Corpuscular HGB Conc 33.6 % (30-36); Mean Corpuscular Hemoglobin 30.2 PG (26-34); Mean Corpuscular Volume 89.9 fL (80-100); Monocytes Absolute Auto 900 /uL (0-900); Monocytes Percent Auto 12.5 % (3-14); Neutrophils Absolute Auto 4500 /uL (1500-7000); Neutrophils Percent Auto 65.3 % (50-75); Platelet Count 207 X10^3/uL (150-400); Red Cell Distribution Width 13.6 % (11.6-14.8); White Blood Cell Count 6.9 X10^3/uL (4.5-11.0)
[2022-06-30 16:39] LABS: Alanine Aminotransferase 32 IU/L (<35); Albumin 3.5 g/dL (3.5-5.0); Albumin Globulin Ratio 1.1 (1.0-2.8); Alkaline Phosphatase 79 U/L (38-126); Aspartate Aminotransferase 33 IU/L (14-36); BUN Creatinine Ratio 16.5 (6-22); Bilirubin Total 0.8 mg/dL (0.2-1.3); Blood Urea Nitrogen 14 mg/dL (7-17); Calcium 9.2 mg/dL (8.4-10.2); Carbon Dioxide 30 mmol/L (22-32); Chloride 101 mmol/L (98-107); Estimated Glomerular Filt Rate > 60 mL/min (>60); Globulin 3.2 g/dL (1.7-4.1); Glucose 88 mg/dL (80-110); HEMOLYSIS < 15 (0-50); Potassium 4.1 mmol/L (3.4-5.1); Sodium 136 mmol/L (137-145); Total Protein 6.7 g/dL (6.3-8.2)
[2022-06-30 16:56] LABS: Procalcitonin 0.05 ng/mL (<0.5)
[2022-06-30 17:36] VITALS: BP 143/68; PULSE 76; RESP 18; O2SAT 96
== END 2022-06-30 17:39 | disposition home or self-care (01) ==
PROVIDERS: Emergency Provider Emergency Medicine; Family Provider Specialist; PCP Family Medicine
DX: J06.9 Acute upper respiratory infection, unspecified (principal); Z87.891 Personal history of nicotine dependence
CPT/HCPCS: 36415; 71045; 80053; 84145; 85025; 99283

== ENCOUNTER → 2022-08-27 08:53 | Outpatient (CLI) | payer MEDICARE, OTHER, SELFPAY ==
[2022-08-27 10:43] LABS: Influenza A - CEPHEID Flu A NEGATIVE (NEGATIVE); Influenza B - CEPHEID Flu B NEGATIVE (NEGATIVE); Respiratory Syncytial Virus Negative (Negative)
[2022-08-27 10:44] LABS: COVID-19 CEPHEID 4-PLEX PCR POSITIVE (Negative)
== END ==
PROVIDERS: Family Provider Specialist; PCP Family Medicine; Visit Provider Physician Assistant
DX: U07.1 COVID-19 (principal); R05.1 Acute cough; Z20.822 Contact with and (suspected) exposure to COVID-19
CPT/HCPCS: 0241U

== ENCOUNTER → 2022-11-30 11:03 | Outpatient (CLI) | payer MEDICARE, OTHER, SELFPAY ==
--- NOTE | 2022-11-30 11:06 | DI.MG.S_ITS ---
BILATERAL DIGITAL SCREENING MAMMOGRAM 3D/2D WITH CAD: 11/30/2022 CLINICAL: Routine screening. Comparison is made to exams dated: 08/18/2021 mammogram, 06/07/2020 mammogram, and 06/01/2019 mammogram - [facility]. There are scattered areas of fibroglandular density in both breasts (category b / 25%-50% glandular tissue). Current study was also evaluated with a Computer Aided Detection (CAD) system. No significant masses, calcifications, or other findings are seen in either breast. There has been no significant interval change. IMPRESSION: NEGATIVE There is no mammographic evidence of malignancy. A 1 year screening mammogram is recommended. Based on the Tyrer Cuzick model (a risk assessment model) the patient's lifetime risk is 3.3% and her 10 year risk is 0.0%. According to the ACR, ACS, and NCCN guidelines, an annual breast MRI exam along with mammogram is recommended if the patient's lifetime risk is 20% or greater. This exam was interpreted at Station ID: [id number]. NOTE: For mammograms, a report in lay terms will be sent to the patient. Approximately 15% of breast malignancies will not be visualized mammographically. In the management of a palpable breast mass, a negative mammogram must not discourage biopsy of a clinically suspicious lesion. Electronically Signed By: Jane adhikari/jordan:12/02/2022 09:16:50 letter sent: Normal Exam ACR BI-RADS Category 1: Negative [id number]
== END ==
PROVIDERS: Family Provider Specialist; PCP Family Medicine; Referring Provider Family Medicine; Visit Provider Family Medicine
DX: Z12.31 Encounter for screening mammogram for malignant neoplasm of breast (principal)
CPT/HCPCS: 77063; 77067

== ENCOUNTER → 2023-12-23 17:30 | Outpatient (CLI) | payer MEDICARE, OTHER, SELFPAY ==
--- NOTE | 2023-12-23 17:32 | DI.MG.S_ITS ---
BILATERAL DIGITAL SCREENING MAMMOGRAM 3D/2D WITH CAD: 12/23/2023 CLINICAL: Routine screening. Comparison is made to exams dated: 11/30/2022 mammogram, 08/18/2021 mammogram, and 06/07/2020 mammogram - [facility]. There are scattered areas of fibroglandular density in both breasts (category b / 25%-50% glandular tissue). Current study was also evaluated with a Computer Aided Detection (CAD) system. No significant masses, calcifications, or other findings are seen in either breast. There has been no significant interval change. IMPRESSION: NEGATIVE There is no mammographic evidence of malignancy. A 1 year screening mammogram is recommended. Based on the Tyrer Cuzick model (a risk assessment model) the patient's lifetime risk is 2.9% and her 10 year risk is 0.0%. According to the ACR, ACS, and NCCN guidelines, an annual breast MRI exam along with mammogram is recommended if the patient's lifetime risk is 20% or greater. This exam was interpreted at Station ID: [id number]. NOTE: For mammograms, a report in lay terms will be sent to the patient. Approximately 15% of breast malignancies will not be visualized mammographically. In the management of a palpable breast mass, a negative mammogram must not discourage biopsy of a clinically suspicious lesion. Electronically Signed By: Kam marrufo/jordan:12/25/2023 08:18:27 copy to: SAYRA SANCHEZ letter sent: Normal Exam ACR BI-RADS Category 1: Negative [id number]
== END ==
LOC: MAMMO 17:31
PROVIDERS: Family Provider Specialist; PCP Family Medicine; Referring Provider Family Medicine; Visit Provider Family Medicine
DX: Z12.31 Encounter for screening mammogram for malignant neoplasm of breast (principal); R92.323 Mammographic fibroglandular density, bilateral breasts
CPT/HCPCS: 77063; 77067

== ENCOUNTER → 2024-09-22 17:54 | Outpatient (ROUT) | payer MEDICARE, OTHER, SELFPAY | PROVIDERS: Family Provider Specialist; PCP Family Medicine | DX: L98.8 Other specified disorders of the skin and subcutaneous tissue (principal); L08.9 Local infection of the skin and subcutaneous tissue, unspecified | CPT/HCPCS: 87070; 87075; 87205 ==

== ENCOUNTER → 2025-02-01 17:33 | Outpatient (CLI) | payer MEDICARE, OTHER, SELFPAY ==
--- NOTE | 2025-02-01 17:35 | DI.MG.S_ITS ---
MM screening mammo BI: 02/01/2025. BI-RADS: 1 CLINICAL: 79-year old female for bilateral screening mammogram. Tyrer-Cuzick lifetime risk of 3.7%. No personal or first-degree family history of breast cancer. The patient had a prior right breast biopsy. PRIOR EXAMS 12/23/2023, 11/30/2022, 08/18/2021, 06/07/2020, MAMMOGRAPHY TECHNIQUE: 2D and 3D (tomosynthesis) digital mammographic views obtained, with additional images as needed for full coverage. Current study was also evaluated with a Computer Aided Detection (CAD) system. DENSITY B. There are scattered areas of fibroglandular density. MAMMOGRAPHY FINDINGS Bilateral: No suspicious mass, asymmetry, microcalcification, or other abnormality seen. IMPRESSION: * No evidence of malignancy. RECOMMENDATIONS Bilateral * Annual screening mammography. OVERALL ASSESSMENT CATEGORY BI-RADS-1: Negative. The [employer] recommends annual screening mammography beginning at age 40 for women with average risk of breast cancer. ELECTRONICALLY SIGNED: Marin Pace M.D. on 02/02/2025 at 08:38:58 AM PT Interpreting Station ID: [id number]
== END ==
PROVIDERS: Family Provider Specialist; PCP Family Medicine; Referring Provider Family Medicine; Visit Provider Family Medicine
DX: Z12.31 Encounter for screening mammogram for malignant neoplasm of breast (principal)
CPT/HCPCS: 77063; 77067